=== PATIENT | male | born 1955 | race Caucasian/White ===

== ENCOUNTER 2017-09-20 17:19 | Inpatient (IN) | payer OTHER ==
[~2017-09-20] VITALS: Ht 170.2 cm; Wt 96.5 kg
[2017-09-20 18:07] LABS: Basophils # (auto) 0.1 uL; Basophils % (auto) 0.6 % (0.0-2.0); Eosinophils # (auto) 0 uL; Eosinophils % (auto) 0.4 % (0.0-7.0); Hematocrit 43.7 % (41.0-53.0); Hemoglobin 14.4 g/dL (13.5-17.5); Lymphocytes # (auto) 2.1 uL; Mean Corpuscular Hemoglobin 30.7 pg (28.0-32.0); Monocytes # (auto) 0.9 uL; Monocytes % (auto) 9.4 % (0.0-12.0); Neutrophils # (auto) 6.6 uL; Neutrophils % (auto) 67.6 % (37.0-80.0); Platelet Count (auto) 279 10^3/uL (140-450); Red Cell Distribution Width 14.6 % (11.8-14.3); White Blood Cell 9.7 10^3/uL (4.4-10.8)
[2017-09-20] MEDS ORDERED: MORPHINE SULFATE 4 MG/ML SYR/VIAL IV ONE (18:15)
[2017-09-20] MEDS ORDERED: ONDANSETRON HCL 4 MG/2 ML VIAL IV ONE (18:15)
[2017-09-20 18:38] LABS: Alanine Aminotransferase 44 U/L (16-61); Albumin 3.6 g/dL (3.4-5.0); Alkaline Phosphatase 136 U/L (45-117); Anion Gap 12 (5-15); Aspartate Aminotransferase 26 U/L (15-37); BUN/Creatinine Ratio 9.6; Blood Urea Nitrogen 9 mg/dL (7-18); Calcium 9.2 mg/dL (8.5-10.1); Carbon Dioxide 20 mmol/L (21-32); Chloride 104 mmol/L (98-107); GFR African American 104 mL/min; GFR Non-African American 86 mL/min; Glucose 138 mg/dL (74-106); Magnesium 1.9 mg/dL (1.6-2.6); Potassium 3.7 mmol/L (3.5-5.1); Sodium 136 mmol/L (136-145); Total Protein 7.3 g/dL (6.4-8.2)
[2017-09-20] MEDS ORDERED: MORPHINE SULF INJ 2 MG/ML SYRINGE 1ML IV PRN (19:15)
[2017-09-20] MEDS ORDERED: cloNIDine HCL 0.1 MG TAB PO PRN (19:15)
[2017-09-20] MEDS ORDERED: ACETAMINOPHEN 325 MG TAB PO PRN (19:15)
[2017-09-20] MEDS ORDERED: NITROGLYCERIN 0.4 MG SL TAB SL PRN (19:15)
[2017-09-20] MEDS ORDERED: TEMAZEPAM 15 MG CAP PO PRN (19:15)
[2017-09-20] MEDS ORDERED: DOCUSATE SOD 100 MG CAP PO PRN (19:15)
[2017-09-20] MEDS ORDERED: LISINOPRIL 20 MG TAB PO ONE (19:30)
[2017-09-20] MEDS ORDERED: ASPirin 81 mg TAB PO ONE (19:30)
[2017-09-20] MEDS: TAMSULOSIN HYDROCHLORIDE 0.4 MG CAP PO SCH (19:47)
[2017-09-20] MEDS: MORPHINE SULF INJ 2 MG/ML SYRINGE 1ML IV PRN (19:48)
[2017-09-20] MEDS: ONDANSETRON HCL 4 MG/2 ML VIAL IV PRN (19:48)
[2017-09-20 22:00] VITALS: BP 167/125
[2017-09-20] MEDS ORDERED: PROMETHAZINE HCL 25 MG/ML 1ML IV ONE (22:00)
[2017-09-20] MEDS ORDERED: ZOLP10TA PO (22:34)
[2017-09-20] MEDS: CARVEDILOL 12.5 MG TAB PO SCH (23:12)
[2017-09-20] MEDS: ZOLPIDEM TARTRATE 5 MG TAB PO PRN (23:12)
[2017-09-20] MEDS: FAMOTIDINE 20 MG TAB PO SCH (23:12)
[2017-09-20] MEDS: ATORVASTATIN 20 MG TAB PO SCH (23:12)
[2017-09-21] VITALS (11 sets, daily range): BP systolic 79–144; BP diastolic 52–98
[2017-09-21] MEDS: ONDANSETRON HCL 4 MG/2 ML VIAL IV PRN ×2 (00:22→04:28)
[2017-09-21] MEDS: MORPHINE SULF INJ 2 MG/ML SYRINGE 1ML IV PRN ×2 (00:23→04:28)
[2017-09-21 05:30] LABS: Basophils # (auto) 0 uL; Eosinophils # (auto) 0 uL; Mean Corpuscular Hgb Conc. 33.7 g/dL (32.0-36.0); Monocytes # (auto) 0.9 uL; Red Cell Distribution Width 14.8 % (11.8-14.3)
[2017-09-21 05:33] LABS: Hematocrit 51.7 % (41.0-53.0); Hemoglobin 17.4 g/dL (13.5-17.5); Lymphocytes # (auto) 1.2 uL; Lymphocytes % (auto) 7.7 % (10.0-50.0); Mean Corpuscular Hemoglobin 31.2 pg (28.0-32.0); Mean Corpuscular Volume 92.6 fL (80.0-100.0); Monocytes % (auto) 5.5 % (0.0-12.0); Neutrophils % (auto) 86.8 % (37.0-80.0); Platelet Count (auto) 372 10^3/uL (140-450); Red Blood Cells 5.58 10^6/uL (4.5-5.90); White Blood Cell 16.1 10^3/uL (4.4-10.8)
[2017-09-21 06:05] LABS: Albumin 3.6 g/dL (3.4-5.0); BUN/Creatinine Ratio 11.1; Bilirubin, Total 1.2 mg/dL (0.2-1.0); Calcium 9.2 mg/dL (8.5-10.1); Potassium 4.2 mmol/L (3.5-5.1); Total Protein 7.3 g/dL (6.4-8.2)
[2017-09-21] MEDS ORDERED: SODIUM CHLORIDE 0.9% 500 ML IV ONE (06:30)
[2017-09-21] MEDS: HYDROcodone-ACET 5/325MG TAB PO PRN ×3 (08:05→21:34)
[2017-09-21] MEDS: FAMOTIDINE 20 MG TAB PO SCH ×2 (08:06→21:36)
[2017-09-21] MEDS: DULoxetine HCL 30 MG CAP PO SCH (08:06)
[2017-09-21] MEDS: SODIUM CHLORIDE 0.9% 1,000 ML IV SCH ×2 (08:07→11:04)
[2017-09-21] MEDS: CARVEDILOL 12.5 MG TAB PO SCH ×2 (08:07→21:36)
[2017-09-21] MEDS ORDERED: LISINOPRIL 20 MG TAB PO SCH (10:00)
[2017-09-21] MEDS ORDERED: DIGOXIN (250MCG/ML) 2 ML AMPULE IV ONE (10:00)
[2017-09-21] MEDS ORDERED: ENOXAPARIN SOD 40 MG/0.4 ML SYRINGE SC SCH (10:00)
[2017-09-21] MEDS ORDERED: ASPirin 81 mg TAB PO SCH (10:00)
[2017-09-21] MEDS ORDERED: ADENOSINE 50 MG in GIVE UN-DILUTED 0 ML IV ONE (13:00)
[2017-09-21] MEDS ORDERED: LISI-646 PO (15:39)
[2017-09-21] MEDS ORDERED: TAMS0.4C36 PO (15:39)
[2017-09-21] MEDS ORDERED: HYDR-4798 PO (15:39)
[2017-09-21] MEDS ORDERED: OMEP20TA PO (15:39)
[2017-09-21] MEDS ORDERED: VENL150T19 PO (15:39)
[2017-09-21] MEDS ORDERED: ATOR20TA50 PO (15:39)
[2017-09-21] MEDS ORDERED: MORP1TAB12 PO (15:39)
[2017-09-21] MEDS ORDERED: CITA-77 PO (15:39)
[2017-09-21] MEDS ORDERED: CARV12.544 PO (15:39)
[2017-09-21] MEDS ORDERED: DULO30CA PO (15:39)
[2017-09-21] MEDS ORDERED: CLON05T PO (15:39)
[2017-09-21] MEDS ORDERED: TIZA4CAP PO (15:39)
[2017-09-21] MEDS: TAMSULOSIN HYDROCHLORIDE 0.4 MG CAP PO SCH (17:42)
[2017-09-21] MEDS: clonazePAM 0.5 MG TAB PO PRN (21:34)
[2017-09-21] MEDS: ATORVASTATIN 20 MG TAB PO SCH (21:36)
[2017-09-22] MEDS: SODIUM CHLORIDE 0.9% 1,000 ML IV SCH ×3 (03:45→23:30)
[2017-09-22] MEDS: HYDROcodone-ACET 5/325MG TAB PO PRN ×3 (03:46→14:09)
[2017-09-22 05:04] VITALS: BP 111/75
[2017-09-22 05:50] LABS: Basophils # (auto) 0 uL; Basophils % (auto) 0.2 % (0.0-2.0); Eosinophils # (auto) 0 uL; Eosinophils % (auto) 0.4 % (0.0-7.0); Hematocrit 39.5 % (41.0-53.0); Hemoglobin 12.9 g/dL (13.5-17.5); Lymphocytes # (auto) 2.9 uL; Lymphocytes % (auto) 26.4 % (10.0-50.0); Mean Corpuscular Hemoglobin 30.7 pg (28.0-32.0); Mean Corpuscular Hgb Conc. 32.6 g/dL (32.0-36.0); Monocytes # (auto) 1.2 uL; Neutrophils # (auto) 6.8 uL; Nucleated Red Blood Cells % 0.1 %; Platelet Count (auto) 245 10^3/uL (140-450); White Blood Cell 10.9 10^3/uL (4.4-10.8)
[2017-09-22 06:08] LABS: Calcium 8.5 mg/dL (8.5-10.1); Potassium 4.3 mmol/L (3.5-5.1)
[2017-09-22 06:12] LABS: BUN/Creatinine Ratio 18.9
[2017-09-22 06:14] LABS: Bilirubin, Total 0.8 mg/dL (0.2-1.0); Total Protein 5.9 g/dL (6.4-8.2)
[2017-09-22] MEDS ORDERED: LIDOCAINE 2%HCL (LOCAL ANESTH.) INJ 10ml MDV ONE (07:17)
[2017-09-22] MEDS ORDERED: IODIXANOL 320MG/ML 100ML BTL IV ONE (07:17)
[2017-09-22] MEDS ORDERED: fentaNYL CITRATE 100 MCG/2 ML VL ONE (07:31)
[2017-09-22] MEDS ORDERED: ANGIOMAX 250 MG VIAL IV ONE (07:31)
[2017-09-22] MEDS ORDERED: VERAPAMIL 2.5MG/ML INJ 2ML VIAL IV ONE (07:31)
[2017-09-22] MEDS ORDERED: MIDAZOLAM HCL 1MG/1ML-2 ML VIAL ONE (07:32)
[2017-09-22] MEDS ORDERED: EPTIFIBATIDE INJ (2MG/ML) 10ML VIAL IV ONE (07:32)
[2017-09-22] MEDS ORDERED: SODIUM CHL 0.9% 50 ML ONE (07:32)
[2017-09-22] MEDS ORDERED: HYDROmorphone HCL 2 MG/ML VL ONE (07:41)
[2017-09-22] MEDS ORDERED: ASPirin 325 MG TAB ONE (07:57)
[2017-09-22] MEDS ORDERED: PRASUGREL HCL 10 MG TAB ONE ×2 (07:57→07:58)
[2017-09-22] MEDS ORDERED: NITROGLYCERIN 0.4MG/DOSE SPRAY 4.9GM ONE (07:59)
[2017-09-22] MEDS ORDERED: LABETALOL HCL 5 MG/ML ML 20ML VIAL IV ONE (08:07)
[2017-09-22] MEDS ORDERED: SODIUM CHLORIDE 0.9% 1,000 ML IV SCH (08:25)
[2017-09-22] MEDS ORDERED: NITROGLYCERIN 0.4 MG SL TAB SL PRN (08:30)
[2017-09-22] MEDS ORDERED: MORPHINE SULF INJ 2 MG/ML SYRINGE 1ML IV PRN ×2 (08:30→21:30)
[2017-09-22 09:00] VITALS: BP 162/99
[2017-09-22] MEDS: DULoxetine HCL 30 MG CAP PO SCH (10:07)
[2017-09-22] MEDS: CARVEDILOL 12.5 MG TAB PO SCH ×2 (10:08→21:49)
[2017-09-22] MEDS: VENLAFAXINE HCL 37.5mg XR cap PO SCH (10:08)
[2017-09-22] MEDS: FAMOTIDINE 20 MG TAB PO SCH ×2 (10:08→21:50)
[2017-09-22] MEDS: amLODIPine BESYLATE 5 MG TAB PO SCH (10:09)
[2017-09-22] MEDS: ONDANSETRON HCL 4 MG/2 ML VIAL IV PRN ×2 (10:14→13:54)
[2017-09-22 12:10] LABS: Cholesterol 112 mg/dL (< 200); HDL Cholesterol 32 mg/dL (40-59); LDL Cholesterol 71 mg/dL (< 100); Triglycerides 107 mg/dL (< 150)
[2017-09-22 13:00] VITALS: BP 160/95
[2017-09-22] MEDS: clonazePAM 0.5 MG TAB PO PRN (14:09)
[2017-09-22 16:46] VITALS: BP 157/87
[2017-09-22] MEDS: TAMSULOSIN HYDROCHLORIDE 0.4 MG CAP PO SCH (18:28)
[2017-09-22 20:00] VITALS: BP 154/106
[2017-09-22 21:00] VITALS: BP 154/106
[2017-09-22] MEDS ORDERED: MORPHINE SULF 15mg ER tab PO ONE (21:15)
[2017-09-22] MEDS: ATORVASTATIN 20 MG TAB PO SCH (21:50)
[2017-09-22] MEDS: ZOLPIDEM TARTRATE 5 MG TAB PO PRN ×2 (22:26)
[2017-09-22] MEDS: HYDROcodone-ACET 10/325MG TAB PO PRN (22:27)
[2017-09-23] MEDS ORDERED: METHYLPREDNISOLONE 4 MG TAB PO ONE (03:15)
[2017-09-23 05:04] VITALS: BP 103/66
[2017-09-23 05:45] LABS: Calcium 7.8 mg/dL (8.5-10.1); Potassium 3.5 mmol/L (3.5-5.1)
[2017-09-23] MEDS: HYDROcodone-ACET 10/325MG TAB PO PRN ×2 (07:55→15:24)
[2017-09-23] MEDS ORDERED: ALUM & MAG HYDROX-SIMETH LIQ(MAALOX) 30 ML PO ONE (08:45)
[2017-09-23] MEDS ORDERED: DONNATAL 5ml ORAL Elix (BELLADONNA ALK-PHENOBARB) PO ONE (08:45)
[2017-09-23] MEDS ORDERED: LIDOCAINE VISCOUS 2% 15ML UD PO ONE (08:45)
[2017-09-23] MEDS ORDERED: PANTOPRAZOLE 40 MG/10 ML VIAL IV ONE (08:45)
[2017-09-23] MEDS ORDERED: CLOPIDOGREL 300 MG TAB PO ONE (08:45)
[2017-09-23] MEDS ORDERED: AML5T PO (08:47)
[2017-09-23] MEDS ORDERED: CLOP75TA28 PO (08:47)
[2017-09-23] MEDS ORDERED: OMEP-263 PO (08:47)
[2017-09-23 09:00] VITALS: BP 142/91
[2017-09-23] MEDS: CARVEDILOL 12.5 MG TAB PO SCH (09:58)
[2017-09-23] MEDS: FAMOTIDINE 20 MG TAB PO SCH (09:58)
[2017-09-23] MEDS: DULoxetine HCL 30 MG CAP PO SCH (09:59)
[2017-09-23] MEDS: VENLAFAXINE HCL 37.5mg XR cap PO SCH (09:59)
[2017-09-23] MEDS ORDERED: ASPirin 81 mg TAB PO SCH (10:00)
[2017-09-23] MEDS ORDERED: CLOPIDOGREL BISULFATE 75 MG TAB PO SCH (10:00)
[2017-09-23] MEDS: amLODIPine BESYLATE 5 MG TAB PO SCH (10:00)
[2017-09-23] MEDS: SODIUM CHLORIDE 0.9% 1,000 ML IV SCH (10:39)
[2017-09-23 12:18] VITALS: BP 128/92
[2017-09-23 13:00] VITALS: BP 111/72
[2017-09-24] MEDS ORDERED: CLOPIDOGREL BISULFATE 75 MG TAB PO SCH (10:00)
== END 2017-09-23 15:49 | disposition home or self-care (01) | DRG 981 ==
LOC: ER 17:19 → TELE 17:20 → TELE-WESTW 20:08
PROVIDERS: ADMIT Nurse Practitioner; ATTEND Internal Medicine
PROC: B2111ZZ Fluoroscopy of Multiple Coronary Arteries using Low Osmolar Contrast (ICD-10-PCS; principal; 2017-09-22)
PROC: 027034Z Dilation of Coronary Artery, One Artery with Drug-eluting Intraluminal Device, Percutaneous Approach (ICD-10-PCS; 2017-09-22)
PROC: 4A023N7 Measurement of Cardiac Sampling and Pressure, Left Heart, Percutaneous Approach (ICD-10-PCS; 2017-09-22)
DX: I12.9 Hypertensive chronic kidney disease with stage 1 through stage 4 chronic kidney disease, or unspecified chronic kidney disease (principal); I21.4 Non-ST elevation (NSTEMI) myocardial infarction; N17.9 Acute kidney failure, unspecified; F11.20 Opioid dependence, uncomplicated; I25.10 Atherosclerotic heart disease of native coronary artery without angina pectoris; E86.0 Dehydration; G89.29 Other chronic pain; R00.0 Tachycardia, unspecified; I70.0 Atherosclerosis of aorta; E27.8 Other specified disorders of adrenal gland; E78.5 Hyperlipidemia, unspecified; F12.90 Cannabis use, unspecified, uncomplicated; K44.9 Diaphragmatic hernia without obstruction or gangrene; K57.30 Diverticulosis of large intestine without perforation or abscess without bleeding; M47.816 Spondylosis without myelopathy or radiculopathy, lumbar region; N18.3 Chronic kidney disease, stage 3 (moderate); R79.1 Abnormal coagulation profile; Z87.891 Personal history of nicotine dependence; Z91.19 Patient's noncompliance with other medical treatment and regimen; F32.9 Major depressive disorder, single episode, unspecified
CPT/HCPCS: 36415; 71045; 74176; 78452; 80048; 80053; 80061; 83036; 83735; 83880; 84484; 85025; 85379; 86850; 86900; 86901; 92943; 93005; 93017; 93306; 93458; 99152; A6257; C1874; C1887; C9113; J0153; J2001; J2250; J2405; Q9967

== ENCOUNTER 2018-12-21 13:00 | Emergency (ER) | payer OTHER ==
[~2018-12-21] VITALS: Ht 170.2 cm; Wt 55.3 kg
[~2018-12-21 13:00] MED LIST: AML5T PO; ATOR20TA50 PO; CARV12.544 PO; CITA-77 PO; CLON0.5T11 PO; CLOP75TA28 PO; DULO30CA PO; HYDR-4798 PO; MORP1TAB12 PO; OMEP-263 PO; TAMS0.4C36 PO; TIZA4CAP PO; VENL150T19 PO; ZOLP10TA PO
[2018-12-21] MEDS ORDERED: ACETAMINOPHEN/CODEINE#3 (300/30mg) TAB PO ONE (13:45)
[2018-12-21] MEDS ORDERED: HYDROcodone-ACET 7.5/325MG TAB PO ONE (14:15)
[2018-12-21] MEDS ORDERED: amLODIPine BESYLATE 5 MG TAB PO ONE (21:15)
[2018-12-22] VITALS: BP 134/99
[2018-12-22] MEDS ORDERED: HYDROcodone-ACET 5/325MG TAB PO ONE
--- NOTE | 2018-12-22 09:09 | NUR ---
ss consult Patient had a ss consult from ER for lives alone, frequent falls, and unsteady gait. Patient discharged at 1am prior to social service arrival in office. Addendum: 12/22/18 at 1810 by Kelly KING Amended: Links added.
== END 2018-12-22 01:13 | disposition home or self-care (01) ==
LOC: EDBD 13:00 → ER 13:10
DX: S10.93XA Contusion of unspecified part of neck, initial encounter (principal); S00.83XA Contusion of other part of head, initial encounter; E78.5 Hyperlipidemia, unspecified; I10 Essential (primary) hypertension; F12.10 Cannabis abuse, uncomplicated; I25.2 Old myocardial infarction; Z86.73 Personal history of transient ischemic attack (TIA), and cerebral infarction without residual deficits; Z98.61 Coronary angioplasty status; W18.39XA Other fall on same level, initial encounter; Y93.89 Activity, other specified; Y92.89 Other specified places as the place of occurrence of the external cause; Y99.8 Other external cause status
CPT/HCPCS: 70450; 72125; 93005

== ENCOUNTER 2022-08-21 11:06 | Emergency (ER) | payer OTHER ==
[~2022-08-21] VITALS: Ht 170.2 cm; Wt 62.5 kg
[~2022-08-21 11:06] MED LIST changes: -CLON0.5T11 PO; +CLON0.5T3 PO; -OMEP-263 PO; +OMEP-448 PO
[2022-08-21] MEDS ORDERED: SODIUM CHLORIDE 0.9% 500 ML IVB ONE (12:00)
[2022-08-21] MEDS ORDERED: ONDANSETRON HCL 4 MG/2 ML VIAL IV ONE (12:00)
[2022-08-21] MEDS ORDERED: IOHEXOL 300 MG/ML 100ML BOTTLE IJ ONE (12:03)
[2022-08-21 13:57] LABS: Basophils # (auto) 0 10 ^3/uL (0-0.2); Basophils % (auto) 0.3 % (0.0-2.0); Eosinophils # (auto) 0 10 ^3/uL (0-0.8); Eosinophils % (auto) 0.2 % (0.0-7.0); Hematocrit 47.3 % (41.0-53.0); Hemoglobin 15.3 g/dL (13.5-17.5); Lymphocytes # (auto) 0.4 10 ^3/uL (0.4-5.4); Lymphocytes % (auto) 2.6 % (10.0-50.0); Mean Corpuscular Hemoglobin 28.7 pg (28.0-32.0); Mean Corpuscular Hgb Conc. 32.3 g/dL (32.0-36.0); Mean Corpuscular Volume 88.8 fL (80.0-100.0); Monocytes # (auto) 0.5 10 ^3/uL (0-1.3); Monocytes % (auto) 3.4 % (0.0-12.0); Neutrophils # (auto) 13.7 10 ^3/uL (1.6-8.6); Neutrophils % (auto) 93.5 % (37.0-80.0); Nucleated Red Blood Cells % 0.1 %; Red Blood Cells 5.33 10^6/uL (4.5-5.90); Red Cell Distribution Width 16.4 % (11.8-14.3); White Blood Cell 14.6 10^3/uL (4.4-10.8)
[2022-08-21 14:32] LABS: Albumin 3.4 g/dL (3.4-5.0); Calcium 8.6 mg/dL (8.5-10.1)
[2022-08-21 14:34] LABS: Lactic Acid w/Reflex 2.1 mmol/L (0.4-2.0)
[2022-08-21 14:35] LABS: BUN/Creatinine Ratio 19.2 (10.0-20.0); Bilirubin, Total 0.6 mg/dL (0.2-1.0); Total Protein 7.4 g/dL (6.4-8.2)
[2022-08-21] MEDS ORDERED: SODIUM CHLORIDE 0.9% 1,000 ML IV ONE (16:30)
[2022-08-21 17:06] LABS: Urine WBC None Seen /hpf (0 - 3)
[2022-08-21 17:14] LABS: Urine Bacteria NONE SEEN /hpf (None Seen); Urine Blood Negative /uL (Negative); Urine Specific Gravity > 1.050 (1.001-1.035)
[2022-08-21] MEDS ORDERED: DONNATAL 5ml ORAL Elix (BELLADONNA ALK-PHENOBARB) PO ONE (17:30)
[2022-08-21] MEDS ORDERED: LIDOCAINE VISCOUS 2% 15ML UD PO ONE (17:30)
[2022-08-21] MEDS ORDERED: MAALOX PLUS or MAALOX 30 ML PO ONE (17:30)
[2022-08-21] MEDS ORDERED: DICY10CA PO (20:58)
[2022-08-21] MEDS ORDERED: ZOFR4T PO (20:58)
[2022-08-21 22:46] VITALS: BP 136/89
== END 2022-08-21 22:48 | disposition home or self-care (01) ==
LOC: EDBD 11:06 → ER 11:06
DX: K52.9 Noninfective gastroenteritis and colitis, unspecified (principal); E78.5 Hyperlipidemia, unspecified; I10 Essential (primary) hypertension; F12.10 Cannabis abuse, uncomplicated; Z86.73 Personal history of transient ischemic attack (TIA), and cerebral infarction without residual deficits; Z88.6 Allergy status to analgesic agent
CPT/HCPCS: 36415; 74177; 80053; 81001; 83605; 83690; 84484; 85025; 93005; 96361; 96374; 99285; J2405; J7030; J7040; Q9967

== ENCOUNTER → 2024-05-09 | Outpatient (CLI) | payer MEDICAID ==
[~2024-05-09] MED LIST changes: +DICY10CA PO; -TAMS0.4C36 PO; +TAMS0.4C39 PO; -VENL150T19 PO; +VENL150T34 PO; +ZOFR4T PO
[2024-05-09 08:09] LABS: Urine Bacteria None Seen /hpf (None Seen)
[2024-05-09 08:22] LABS: Basophils # (auto) 0.1 10 ^3/uL (0-0.2); Basophils % (auto) 1.3 % (0.0-2.0); Eosinophils # (auto) 0.1 10 ^3/uL (0-0.8); Eosinophils % (auto) 2.8 % (0.0-7.0); Hematocrit 46.3 % (41.0-53.0); Hemoglobin 15.6 g/dL (13.5-17.5); Lymphocytes # (auto) 2.1 10 ^3/uL (0.4-5.4); Lymphocytes % (auto) 43.8 % (10.0-50.0); Mean Corpuscular Hemoglobin 31.8 pg (28.0-32.0); Mean Corpuscular Hgb Conc. 33.6 g/dL (32.0-36.0); Mean Corpuscular Volume 94.6 fL (80.0-100.0); Monocytes # (auto) 0.4 10 ^3/uL (0-1.3); Monocytes % (auto) 8.2 % (0.0-12.0); Neutrophils # (auto) 2.1 10 ^3/uL (1.6-8.6); Neutrophils % (auto) 43.9 % (37.0-80.0); Nucleated Red Blood Cells % 0.1 %; Platelet Count (auto) 229 10^3/uL (140-450); Red Blood Cells 4.89 10^6/uL (4.5-5.90); Red Cell Distribution Width 13.8 % (11.8-14.3); White Blood Cell 4.7 10^3/uL (4.4-10.8)
[2024-05-09 08:28] LABS: Urine Blood Negative /uL (Negative); Urine Clarity Clear (Clear); Urine Color Light-Yellow (Yellow); Urine Protein, UAD Negative (Negative); Urine Specific Gravity 1.009 (1.001-1.035); Urine Squamous Epithelial Cell None Seen /hpf (<5); Urine Urobilinogen Normal (Negative); Urine pH 5.5 (5.0-9.0)
[2024-05-09 08:36] LABS: Urine WBC < 1 /HPF (0-3)
[2024-05-09 08:44] LABS: Protein, Urine < 6.0 mg/dL (1-14)
[2024-05-09 08:46] LABS: Creatinine, Urine 49.53 mg/dL (30.0-125.0); Urine Protein/Creatinine Ratio 0.12
[2024-05-09 08:49] LABS: Alanine Aminotransferase 17 U/L (7-40); Albumin 4.8 g/dL (3.2-4.8); Alkaline Phosphatase 73 U/L (46-116); Anion Gap 7 (5-15); Aspartate Aminotransferase 14 U/L (13-40); BUN/Creatinine Ratio 14.8 (10.0-20.0); Bilirubin, Total 0.7 mg/dL (0.2-1.0); Blood Urea Nitrogen 12 mg/dL (9-23); Calcium 9.9 mg/dL (8.7-10.4); Carbon Dioxide 30 mmol/L (20-31); Chloride 103 mmol/L (98-107); Potassium 4.5 mmol/L (3.5-5.1); Sodium 140 mmol/L (136-145); Total Protein 7.1 g/dL (5.7-8.2)
[2024-05-09 08:51] LABS: Glucose 159 mg/dL (74-106)
[2024-05-10 08:07] LABS: Complement C3 123 mg/dL (82-167)
[2024-05-10 14:06] LABS: Anti-dsDNA Antibody 9 IU/mL (0-9)
== END | disposition home or self-care (01) ==
LOC: LAB 07:50
PROVIDERS: ATTEND Family Medicine
DX: M35.9 Systemic involvement of connective tissue, unspecified (principal)
CPT/HCPCS: 36415; 80053; 81001; 82570; 84156; 85025; 86160; 86225

== ENCOUNTER 2024-11-12 08:29 | Outpatient (CLI) | payer MEDICAID ==
[2024-11-12 09:25] LABS: Hematocrit 48.2 % (41.0-53.0); Hemoglobin 16.4 g/dL (13.5-17.5); Mean Corpuscular Hemoglobin 32.2 pg (28.0-32.0); Mean Corpuscular Volume 94.7 fL (80.0-100.0); Nucleated Red Blood Cells % 0.1 %
[2024-11-12 09:29] LABS: Urine Protein, UAD Negative (Negative)
[2024-11-12 09:40] LABS: Protein, Urine 16.1 mg/dL (1-14)
[2024-11-12 09:53] LABS: Alanine Aminotransferase 18 U/L (7-40)
[2024-11-13 14:07] LABS: Anti-dsDNA Antibody 8 IU/mL (0-9)
== END 2024-11-12 17:00 | disposition home or self-care (01) ==
LOC: LAB 08:29
PROVIDERS: ATTEND Internal Medicine Rheumatology
DX: M35.9 Systemic involvement of connective tissue, unspecified (principal); Z68.1 Body mass index [BMI] 19.9 or less, adult
CPT/HCPCS: 36415; 81001; 82043; 82570; 84156; 84450; 84460; 85025; 86160; 86225